=== PATIENT | female | born 1985 | race Caucasian/White ===

== ENCOUNTER 2016-12-03 13:39 | Outpatient (CLI) | payer MEDICAID ==
[~2016-12-03] VITALS: Ht 162.6 cm; Wt 110.7 kg
--- OUTSIDE RECORDS SUMMARY | 2016-12-03 13:44 | XMS REPORT ---
Author MALLORY Buckley [facility] eClinicalWorks Address Unknown Phone Unavailable Care Team Providers Care Analysis Evaluator Name Role Phone MALLORY WANG CP Unavailable Allergies No Known Allergies Problems No Known Problems Medications No Known Medications Results No Known Results Summary Purpose eClinicalWorks Submission
[2016-12-03] MEDS ORDERED: FLU TRIvalent (5 YOA+) 2016-17 (AFLURIA) 0.5 ML IM ONE (14:15)
[2016-12-03] MEDS ORDERED: PREN1TAB86 PO (15:22)
[2016-12-03] MEDS ORDERED: LORA10CA PO (15:23)
--- NOTE | 2016-12-03 16:00 | Diagnostic Imaging Report ---
EXAMINATION: OB ultrasound. INDICATION: Decreased movement. Low heart rate on baseline study. Evaluate COLLEEN and growth. FINDINGS: heart rate is 156 beats minute, normal. The placenta is on the right lateral aspect with no placenta previa. The amniotic fluid index is 9.4 cm. The growth parameters are biparietal diameter at 31 weeks, head circumference at 29 weeks and 2 days, abdominal circumference at 29 weeks and 4 days and femur length at 30 weeks and 1 day for an average of 30 weeks and 0 days. This is concordant with gestational age of 28 weeks and 6 days based on provided ONEAL of 02/19/17 provided by lamp shade sewer. IMPRESSION: Live intrauterine . Dictated by: Dictated on workstation # [id number]
--- NOTE | 2016-12-04 10:39 | Physician Query-Final Dx ---
SIDRA RUGGIERO 12/04/16 1039: Clinic Account Progress/Dx Physician Query: Please give diagnosis Date of Service Dec 03, 2016 at 13:39 MIESHA JAEGER MD 12/04/16 1720: Clinic Account Progress/Dx DIAGNOSIS: Diagnosis Decreased movement, third trimester SIDRA RUGGIERO Dec 04, 2016 10:39 MIESHA JAEGER MD Dec 04, 2016 17:20
[2017-01-31] MEDS ORDERED: IBUP-1773 PO (08:48)
[2017-01-31] MEDS ORDERED: DOCU100C37 PO (08:48)
[2017-01-31] MEDS ORDERED: HYDR-3812 PO (08:48)
== END 2016-12-03 15:35 | disposition home or self-care (01) ==
LOC: WSo 13:39 → LDRP 13:39 → WSo 15:35
PROVIDERS: ATTEND Obstetrics & Gynecology
DX: O36.8130 Decreased fetal movements, third trimester, not applicable or unspecified (principal); Z3A.28 28 weeks gestation of pregnancy
CPT/HCPCS: 76805; 99213

== ENCOUNTER 2017-01-30 10:30 | Inpatient (IN) | payer MEDICAID ==
[~2017-01-30] VITALS: Ht 162.6 cm; Wt 117.9 kg
[2017-01-30] VITALS (36 sets, daily range): BP systolic 103–167; BP diastolic 57–96
[~2017-01-30 10:30] MED LIST: LORA10CA PO; PREN1TAB86 PO
[2017-01-30] MEDS ORDERED: NS (IVPB) 0 ML ONE (11:10)
[2017-01-30] MEDS ORDERED: AMPICILLIN INJECTION 2,000 MG in NS (IVPB) 50 ML IV SCH (11:14)
[2017-01-30] MEDS ORDERED: NS IV 1000 ML 1,000 ML ONE (11:14)
[2017-01-30] MEDS ORDERED: CATHETER FLUSH 10 ML SYR IV PRN (11:15)
[2017-01-30] MEDS ORDERED: LIDOCAINE 1% INJ 20 ML (XYLOCAINE) VIAL INJ SCH (11:15)
[2017-01-30] MEDS ORDERED: MISOPROSTOL 100 MCG (CYTOTEC) TAB PO ONE ×2 (11:30→15:30)
--- NOTE | 2017-01-30 11:32 | History & Physical-OB ---
OB - Chief Complaint & HPI Date Date of Admission: Date of Admission: Jan 30, 2017 at 10:30 am Chief Complaint/History OB-Reason for Admission/Chief: Induction of Labor Hx : 6 Hx Para: 0 Expected Date of Delivery: Feb 20, 2017 Gestational Age in Weeks: 37 Gestational Age in Days: 1 Indication for induction: maternal distance, other (PreE, elevatated LFT, increased protien:creatinine ratio, noncompliance.) Other reason for admission: This 31-year-old female presented to my office yesterday after having not been seen for nearly 2 months for her care. The patient initially was a late transfer of care in the second trimester. We have been following her closely for noncompliance with her thyroid medications. The patient recently took up residence on an [facility], and she reports this as her excuse for not being able to make its visits. She reports that a cda teacher has been caring for her at the [facility], and that this person had brought concerns to her about preeclampsia due to significant amount of swelling that was noted in her lower extremities. She presented to my office yesterday and was found to have elevated liver function enzymes as well as significant +3 pitting lower show any edema. Her blood pressures remained in a normal level, however the patient has been taking a "kidney supplement pill" a Tamazight remedy which I am unfamiliar with to try and decrease her swelling. Urine protein to creatinine ratio was ordered and found to be greater than 0.3. Due to these findings are recommended proceeding with delivery due to patient's term status as well as noncompliance and vicinity to the hospital. Admission Nurse Assessment Rev: Yes History of Labs O pos antibody neg RI RPR NR HBsAg NR HIV NR GC neg GBS unknown Allergies and Home Medications Allergies Coded Allergies: No Known Drug Allergies (Unverified , 12/03/16) Home Medications Loratadine 10 Mg Capsule, 10 MG PO DAILY, (Reported) Vit W-Ca,Fe,FA(<1 mg) 1 Each Tablet, 1 EACH PO DAILY, (Reported) OB - History Hx of Present Care: Yes (limited) Ultrasounds: Normal mid trimester US Obstetrical Complications: Other (elevated random blood sugar, no 1 hour Glucola screening performed, limited care for hypothyroidism) Medical Complications: Other (hypothyroidism) Patient Past Medical History Hypothyroidism, habitual OB - Admission Exam Physical Exam HEENT: NCAT Heart: Rhythm Normal Lungs: Clear Abdomen: Gravid Cervical Dilatation: Fingertip Effacement: 75% Station: -2 Membranes: Intact Heart Rate: 130's Accelerations: Accelerations Present Decelerations: No Decelerations Short Term Variability: Present [facility] Variability: Average (6-25) Contractions on Admission: >10 Minutes Apart Intensity: Mild Craig Scoring Tool (Modified) Dilation (cm): 1-2cm (1) Effacement (%): 51-79% (2) Descent/Station: -2 (1) Cervix Consistency: Soft (2) Cervix Position: Anterior (2) Add 1 point for: Pre-eclampsia (1) Subtract 1 point for: Nulliparity (-1) Craig Score: 8 OB - Assessment/Plan/Diagnosis Assessment Assessment: induction of labor Plan Plan: Induction Induction Method: per Misoprostol Protocol Discharge Diagnosis Diagnosis: 31 yo @ 37.1 Severe preE with evidence of signicant proteinuria Elevated LFT Non compliance with medical management Non compliance with PNC GBS unknown KELLY SANCHEZ DO Jan 30, 2017 11:32 am
[2017-01-30] MEDS: NS IV 1000 ML 1,000 ML IV SCH (12:00)
[2017-01-30 13:06] LABS: BASOPHILS % (AUTO) 0 % (0-10); EOSINOPHILS # (AUTO) 0.1 10^3/uL (0.0-0.3); EOSINOPHILS % (AUTO) 1 % (0-10); LYMPHOCYTES % (AUTO) 13 % (12-44); MEAN CORPUSCULAR HEMOGLOBIN 29 PG (25-34); MEAN CORPUSCULAR HGB CONC 32 G/DL (32-36); MEAN CORPUSCULAR VOLUME 89 FL (80-99); MEAN PLATELET VOLUME 11.1 FL (7.4-10.4); MONOCYTES # (AUTO) 0.7 X 10^3 (0.0-1.0); MONOCYTES % (AUTO) 8 % (0-12); NEUTROPHILS % (AUTO) 77 % (42-75); PLATELET COUNT 178 10^3/uL (130-400); RED BLOOD COUNT 4.15 10^6/uL (4.35-5.85); WHITE BLOOD COUNT 7.8 10^3/uL (4.3-11.0)
[2017-01-30] MEDS ORDERED: CATHETER FLUSH 10 ML SYR IV SCH (14:00)
[2017-01-30 14:55] LABS: BILIRUBIN,URINE NEGATIVE (NEGATIVE); KETONES,URINE NEGATIVE (NEGATIVE); LEUKOCYTE ESTERASE ,URINE 1+ (NEGATIVE); NITRITE,URINE NEGATIVE (NEGATIVE); PH,URINE 6 (5-9); PROTEIN,URINE 1+ (NEGATIVE); UROBILINOGEN,URINE NORMAL (NORMAL)
[2017-01-30 15:14] LABS: SQUAMOUS EPITHELIAL CELL,UR 25-50 /HPF
[2017-01-30] MEDS: AMPICILLIN INJECTION 1,000 MG in NS (IVPB) 50 ML IV SCH ×2 (17:03→21:15)
[2017-01-30] MEDS ORDERED: MISOPROSTOL 100 MCG (CYTOTEC) TAB ONE (21:13)
[2017-01-30] MEDS ORDERED: HYDROmorphone (DILAUDID) 2 MG/ML VIAL ONE (22:30)
[2017-01-30] MEDS ORDERED: HYDROmorphone (DILAUDID) 2 MG/ML VIAL IVP PRN (22:45)
[2017-01-30] MEDS ORDERED: SUFENTA 0.6MCG/ML BUPIVA 0.125 100 ML ONE (22:46)
[2017-01-30] MEDS: EPIDURAL (SUFENTA 0.6MCG/ML BUPIVA 0.125%) 100 ML BAG EPI SCH (23:40)
[2017-01-30] MEDS ORDERED: LACTATED RINGERS 1,000 ML IV SCH (23:48)
[2017-01-31] VITALS (43 sets, daily range): BP systolic 92–145; BP diastolic 53–94
[2017-01-31] MEDS ORDERED: MISOPROSTOL 100 MCG (CYTOTEC) TAB PO SCH
[2017-01-31] MEDS: AMPICILLIN INJECTION 1,000 MG in NS (IVPB) 50 ML IV SCH ×2 (01:10→05:31)
[2017-01-31] MEDS: NS IV 1000 ML 1,000 ML IV SCH (05:31)
[2017-01-31] MEDS: EPIDURAL (SUFENTA 0.6MCG/ML BUPIVA 0.125%) 100 ML BAG EPI SCH (06:59)
[2017-01-31] MEDS ORDERED: FAMOTIDINE 20MG/2ML IV (PEPCID) ONE (07:54)
[2017-01-31] MEDS ORDERED: CITRIC ACID/SOB CIT (BICITRA) 30 ML UDC ONE (07:54)
[2017-01-31] MEDS ORDERED: OXYTOCIN/NORMAL SALINE 1,000 ML IV ONE (08:20)
[2017-01-31] MEDS ORDERED: ONDANSETRON 4 MG/2 ML (SDV) Z0FRAN ONE (08:20)
[2017-01-31] MEDS ORDERED: BUPIVACAINE SPINAL 0.75% (SENSORCAINE) 2 ML AMP ONE (08:20)
[2017-01-31] MEDS ORDERED: fentaNYL INJECTION 100 MCG/2 ML AMP ONE (08:21)
[2017-01-31] MEDS: LACTATED RINGERS 1,000 ML IV SCH (08:40)
[2017-01-31] MEDS ORDERED: OXYTOCIN/NORMAL SALINE 500 ML IV SCH (08:42)
--- NOTE | 2017-01-31 08:42 | Progress Note-Standard ---
Standard Progress Note Progress Notes/Assess & Plan Progress/Assessment & Plan This 31-year-old female was an induction of labor from yesterday for elevated liver enzymes and significant proteinuria associate with transient blood pressures greater than 140/90 giving me a diagnosis of preeclampsia. the patient was initially started on misoprostol for cervical ripening, this also initiated a contraction pattern. The patient became acutely uncomfortable yesterday evening and after her water broke at approximately 9 o'clock last night she received an epidural shortly thereafter. Throughout the evening she has been princess every 2-3 minutes, all the while causing a significant amount of pressure. She was checked after spontaneous rupture and found to be 1 cm this morning she has been found to make no change and has a slowly elevating temperature of 100.1 this morning. Fetus is also showing signs of intolerance of labor with 2 prolonged decelerations lasting approximately 3 minutes early this morning, heart rate would drop down to the 60s with slow rise back to baseline. When on evaluating the patient's morning she's having repetitive variable decelerations with contractions and minimal to moderate variability. Due to her remoteness from delivery, intolerance of labor, and failure to progress I am recommending we proceed with delivery. Risk of the procedure was discussed with the patient detail including risk of bleeding, infection, damaging surrounding structures including the fetus. Risk for need for blood incision, risk for hysterectomy, and even were discussed the patient. All of her questions were answered with her present, we will proceed as soon as staffing and anesthesia is available. KELLY SANCHEZ DO Jan 31, 2017 8:42 am
[2017-01-31] MEDS ORDERED: HYDROmorphone (DILAUDID) 2 MG/ML VIAL IVP PRN (08:45)
[2017-01-31] MEDS ORDERED: MEASLES,MUMPS,RUBELLA 1 EA INJ SC SCH (08:45)
[2017-01-31] MEDS ORDERED: ONDANSETRON 4 MG/2 ML (SDV) Z0FRAN IVP PRN (08:45)
[2017-01-31] MEDS ORDERED: TETANUS,DIPTH,PERTUSS P/F (BOOSTRIX) 0.5 ML VIAL IM SCH (08:45)
--- NOTE | 2017-01-31 08:46 | Discharge Inst-Women's Service ---
Discharge Inst-Women's Serv Depart Medication/Instructions New, Converted or Re-Newed RX: RX on Chart Consults/Follow Up Additional Follow Up: Yes Orders/Referrals Dr. Russell in 7-10 days and in 6 weeks Activity Activity: Activity as Tolerated Driving Instructions: No Driving for 1 Week NO SMOKING: NO SMOKING Nothing Inside Vagina: No Douching, No [place], No Tampons Diet Discharge Diet: No Restrictions Symptoms to Report to : Bleeding Excessive, Pain Increased, Fever Over 101 Degrees F, Vaginal Bleeding Increase, Questions/Concerns For Any Problems or Questions: Contact Your Physician Skin/Wound Care Infection Signs and Symptoms: Increased Redness, Foul Odor of Wound, Increased Drainage, Skin Itchy or Has a Rash, Increased Swelling, Temperature Above 101 F Operative Area Clean and Dry: Keep Incision Clean/Dry Stitches/Roxane/Dermabond: Dermabond, Care of Stitches Bathing Instructions: KELLY Larson DO Jan 31, 2017 8:46 am
[2017-01-31] MEDS ORDERED: DOCU100C37 PO (08:48)
[2017-01-31] MEDS ORDERED: IBUP-1773 PO (08:48)
[2017-01-31] MEDS ORDERED: HYDR-3812 PO (08:48)
[2017-01-31] MEDS ORDERED: KETOROLAC 30 MG/ML VIAL ONE (09:36)
[2017-01-31] MEDS ORDERED: LACTATED RINGERS 1,000 ML IV SCH (09:58)
[2017-01-31] MEDS ORDERED: morphine INJ 10 MG/ML 1ML (SYR OR VIAL) IVP PRN (10:00)
[2017-01-31] MEDS ORDERED: ceFAZolin 2 GM/50 ML NS 50 ML IV ONE (10:00)
[2017-01-31] MEDS ORDERED: METOCLOPRAMIDE INJ 10 MG/2 ML (REGLAN) IV PRN ×2 (10:00)
[2017-01-31] MEDS ORDERED: METOCLOPRAMIDE INJ 10 MG/2 ML (REGLAN) IV ONE (10:00)
[2017-01-31] MEDS ORDERED: MEPERIDINE (DEMEROL) INJ 50 MG/ML IVP PRN (10:00)
[2017-01-31] MEDS ORDERED: CITRIC ACID/SOB CIT (BICITRA) 30 ML UDC PO ONE (10:00)
[2017-01-31] MEDS ORDERED: FAMOTIDINE 20MG/2ML IV (PEPCID) IV ONE (10:00)
[2017-01-31] MEDS ORDERED: NALOXONE 0.4 MG/ML 1 ML (NARCAN) VIAL IV PRN ×4 (10:00)
[2017-01-31] MEDS ORDERED: diphenhydrAMINE 50 MG/ML INJ (BENADRYL) IV PRN ×2 (10:00)
[2017-01-31] MEDS ORDERED: ONDANSETRON 4 MG/2 ML (SDV) Z0FRAN IV PRN ×2 (10:00)
[2017-01-31] MEDS: HYDROcodone/APAP 5 MG/325 MG (LORTAB) TAB PO PRN ×2 (13:26→22:34)
[2017-01-31] MEDS: DOCUSATE SODIUM 100 MG (COLACE) CAP PO SCH ×2 (13:26→22:33)
[2017-01-31] MEDS: KETOROLAC 30 MG/ML VIAL IVP SCH (17:17)
[2017-02-01 00:30] VITALS: BP 123/70
[2017-02-01] MEDS: KETOROLAC 30 MG/ML VIAL IVP SCH ×3 (00:36→21:33)
[2017-02-01 05:46] LABS: BASOPHILS % (AUTO) 0 % (0-10); EOSINOPHILS # (AUTO) 0.1 10^3/uL (0.0-0.3); EOSINOPHILS % (AUTO) 1 % (0-10); LYMPHOCYTES # (AUTO) 1.5 X 10^3 (1.0-4.0); LYMPHOCYTES % (AUTO) 17 % (12-44); MEAN CORPUSCULAR HEMOGLOBIN 29 PG (25-34); MEAN CORPUSCULAR HGB CONC 32 G/DL (32-36); MEAN CORPUSCULAR VOLUME 91 FL (80-99); MEAN PLATELET VOLUME 10.8 FL (7.4-10.4); MONOCYTES # (AUTO) 0.6 X 10^3 (0.0-1.0); MONOCYTES % (AUTO) 7 % (0-12); NEUTROPHILS # (AUTO) 6.4 X 10^3 (1.8-7.8); NEUTROPHILS % (AUTO) 75 % (42-75); PLATELET COUNT 155 10^3/uL (130-400); RED BLOOD COUNT 3.56 10^6/uL (4.35-5.85); RED CELL DISTRIBUTION WIDTH 14.9 % (10.0-14.5); WHITE BLOOD COUNT 8.6 10^3/uL (4.3-11.0)
[2017-02-01 06:07] LABS: ALANINE AMINOTRANSFERASE 52 U/L (0-55); ALBUMIN 2.4 G/DL (3.2-4.5); ANION GAP 8 MMOL/L (5-14); ASPARTATE AMINO TRANSFERASE 36 U/L (5-34); BILIRUBIN,TOTAL 0.2 MG/DL (0.1-1.0); BLOOD UREA NITROGEN 7 MG/DL (7-18); BUN/CREATININE RATIO 10; CALCIUM 8.4 MG/DL (8.5-10.1); CARBON DIOXIDE 20 MMOL/L (21-32); CHLORIDE 111 MMOL/L (98-107); CREATININE SERUM 0.67 MG/DL (0.60-1.30); GFR ESTIMATED > 60; GLUCOSE 101 MG/DL (70-105); POTASSIUM 4.2 MMOL/L (3.6-5.0); SODIUM 139 MMOL/L (135-145)
[2017-02-01] MEDS: IBUPROFEN 600 MG (MOTRIN) TAB PO SCH ×4 (06:41→23:50)
[2017-02-01 06:45] VITALS: BP 129/89
[2017-02-01 08:04] VITALS: BP 115/80
[2017-02-01] MEDS: DOCUSATE SODIUM 100 MG (COLACE) CAP PO SCH ×2 (08:16→19:52)
--- NOTE | 2017-02-01 08:21 | Progress Note-Standard ---
Standard Progress Note Progress Notes/Assess & Plan Progress/Assessment & Plan Patient doing well POD 1 PLTCS. Reports good pain control. Ambulating and voiding freely. Says that she feels much better today. Tolerating regular diet Vital Sign - Last 24 Hours 01/31/17 01/31/17 01/31/17 01/31/17 08:30 08:46 11:10 11:45 Temp 99.1 98.2 Pulse 95 100 89 81 Resp 18 18 18 18 B/P (MAP) 108/58 123/64 123/76 112/78 Pulse Ox 98 98 99 98 O2 Delivery Non Rebreather Non Rebreather Room Air Room Air O2 Flow Rate 15.00 15.00 01/31/17 01/31/17 01/31/17 02/01/17 13:30 17:00 20:20 00:30 Temp 97.8 98.8 97.7 97.7 Pulse 107 108 97 103 Resp 18 18 16 16 B/P (MAP) 119/69 122/82 110/78 123/70 Pulse Ox 96 97 97 98 O2 Delivery Room Air Room Air Room Air Room Air 02/01/17 02/01/17 06:45 08:04 Temp 97.0 97.4 Pulse 98 93 Resp 18 18 B/P (MAP) 129/89 115/80 Pulse Ox 98 98 O2 Delivery Room Air Room Air Intake and Output 01/31/17 01/31/17 02/01/17 15:00 23:00 07:00 Intake Total 3210 ml 3840 ml 240 ml Output Total 600 ml 1500 ml 1150 ml Balance 2610 ml 2340 ml -910 ml Laboratory Tests Test 02/01/17 05:29 Range/Units White Blood Count 8.6 4.3-11.0 10^3/uL Red Blood Count 3.56 L 4.35-5.85 10^6/uL Hemoglobin 10.3 L 11.5-16.0 G/DL Hematocrit 32 L 35-52 % Mean Corpuscular Volume 91 80-99 FL Mean Corpuscular Hemoglobin 29 25-34 PG Mean Corpuscular Hemoglobin Concent 32 32-36 G/DL Red Cell Distribution Width 14.9 H 10.0-14.5 % Platelet Count 155 130-400 10^3/uL Mean Platelet Volume 10.8 H 7.4-10.4 FL Neutrophils (%) (Auto) 75 42-75 % Lymphocytes (%) (Auto) 17 12-44 % Monocytes (%) (Auto) 7 0-12 % Eosinophils (%) (Auto) 1 0-10 % Basophils (%) (Auto) 0 0-10 % Neutrophils # (Auto) 6.4 1.8-7.8 X 10^3 Lymphocytes # (Auto) 1.5 1.0-4.0 X 10^3 Monocytes # (Auto) 0.6 0.0-1.0 X 10^3 Eosinophils # (Auto) 0.1 0.0-0.3 10^3/uL Basophils # (Auto) 0.0 0.0-0.1 10^3/uL Sodium Level 139 135-145 MMOL/L Potassium Level 4.2 3.6-5.0 MMOL/L Chloride Level 111 H 98-107 MMOL/L Carbon Dioxide Level 20 L 21-32 MMOL/L Anion Gap 8 5-14 MMOL/L Blood Urea Nitrogen 7 7-18 MG/DL Creatinine 0.67 0.60-1.30 MG/DL Estimat Glomerular Filtration Rate > 60 BUN/Creatinine Ratio 10 Glucose Level 101 70-105 MG/DL Calcium Level 8.4 L 8.5-10.1 MG/DL Total Bilirubin 0.2 0.1-1.0 MG/DL Aspartate Amino Transf (AST/SGOT) 36 H 5-34 U/L Alanine Aminotransferase (ALT/SGPT) 52 0-55 U/L Alkaline Phosphatase 150 H 40-136 U/L Total Protein 5.0 L 6.4-8.2 G/DL Albumin 2.4 L 3.2-4.5 G/DL Incision: c/d/i Diagnosis: POD 1 PLTCS Elevation in Liver enzymes- but improving today. intolerance of labor Plan: Continue PO/PP care Repeat CMP tomorrow KELLY SANCHEZ DO Feb 01, 2017 8:21 am
[2017-02-01 12:10] VITALS: BP 121/85
--- NOTE | 2017-02-01 13:11 | Anesthesia-Regional Post-Op ---
Regional Patient Condition Mental Status: Alert, Oriented x3 Circulation: Same as Pre-Op Headache: Absent Sensation: Full Recovery Motor Block: Absent Post Op Complications Complications None Follow Up Care/Instructions Patient Instructions None needed. Anesthesia/Patient Condition Patient is doing well, no complaints, stable vital signs, no apparent adverse anesthesia problems. No complications reported per nursing. ALBERTA MARIEE CRNA Feb 01, 2017 13:11
--- NOTE | 2017-02-01 13:26 | OPERATIVE REPORT ---
PROCEDURE PHYSICIAN: RODRIGO SANCHEZ DATE OF PROCEDURE: 01/31/2017 PREOPERATIVE DIAGNOSIS: 1. 31-year-old G5, P0, at 37 weeks and 2 days gestation. 2. intolerance of labor. 3. Failure to progress. 4. Elevation in liver enzymes. 5. Preeclampsia. POSTOPERATIVE DIAGNOSES: 1. 31-year-old G5, P0, at 37 weeks and 2 days gestation. 2. intolerance of labor. 3. Failure to progress. 4. Elevation in liver enzymes. 5. Preeclampsia. PROCEDURE: Primary low transverse section. SURGEON: Dr. Rodrigo Sacnhez. ANESTHESIA: Spinal. ESTIMATED BLOOD LOSS: 400 mL URINE OUTPUT: 200 mL, clear at the end of the procedure. FLUIDS: 1200 of lactated ringer solution. FINDINGS: Findings is a live female weighing 7 pounds, 10 ounces, Apgars of 6 and 8. Grossly normal appearing uterus, bilateral fallopian tubes, and ovaries. INDICATIONS FOR THE PROCEDURE: This 31-year-old female was induced due to suspicion of severe preeclampsia, significant swelling, elevated blood pressures, urine protein to creatinine ratio greater than 0.3. Due to these findings recommendation was made to induce the patient; please see preoperative note for complete details, pertaining to patient's labor course and indications for . OPERATIVE REPORT IN DETAIL: The patient was taken the operating room where spinal analgesia was found to be adequate. She was placed in the supine position with leftward tilt, prepped and draped in normal sterile fashion. A timeout is performed and anesthesia is tested. After anesthesia is found to be adequate I then make a Pfannenstiel skin incision with a knife and carry it down to the underlying fascia using the Bovie cautery. The fascial incision was extended laterally using Bovie cautery. The superior aspect of the fascial incision was then grasped with Milton clamps, tented upward and dissected off the underlying rectus muscles. The inferior aspect of the fascial incision was then grasper Milton clamps, tented upward and dissected off the underlying rectus muscles. The rectus muscles were then dissected down the midline using Mora scissors which exposes the peritoneum which is entered bluntly using my hand. Once the peritoneal access is obtained, I extend the peritoneal incision superior and inferiorly using Metzenbaum scissors with good visualization of the underlying bowel and bladder. I then place the Derik ring retractor into the peritoneal incision which offers excellent lateral sidewall retraction. I am able to identify the lower uterine segment which was found to be thinned out. An incision is made using the knife through the vesicouterine peritoneum and this was bluntly dissect it off of the lower uterine segment creating a bladder flap. I then proceed with my myotomy until membranes are visualized at which point I extend the uterine incision laterally and superiorly using banded scissors. The fetus is found in the right occiput transverse presentation and a hand presents through the incision before I am able to manipulate the head up to the incision. I then reduce the hand back within the uterus and place my hand within the uterine incision, placing it beneath the head and elevated up to the incision where it is delivered through the incision. The nares and oropharynx are bulb suctioned. Anterior posterior shoulders were delivered and is then brought onto the operative field where the cord is dually clamped and cut and the is handed off to the waiting pediatric nurses in attendance. The cord blood was collected, three vessel cord. Placenta is delivered spontaneously thereafter. IV Pitocin is initiated to facilitate uterine princess, the fundus becomes firmer with bimanual massage. The uterus is then exteriorized and cleared of all endometrial clots and debris. I then close the uterine incision using 0 Vicryl suture in a running lock fashion. A second layer of imbricating 0 Monocryl is placed. Excellent hemostasis noted after doing so. I then placed the uterus back within the pelvis and copiously irrigate the pelvis using normal saline. There is no active bleeding noted from any my dissection planes. I then place intercede antiadhesive over my low transverse incision and closed the peritoneum using 3-0 Vicryl suture in a running fashion. The fascia was reapproximated in 0 Vicryl suture in a running fashion. The subcutaneous tissues reapproximated 3-0 plain in an interrupted subcutaneous stitch and skin reapproximated using 4-0 Monocryl in a running, subcuticular. Dermabond is applied to the incision, a sterile dressing and adhesive white tape. The patient tolerated the procedure well and was taken to the recovery area in stable condition with Pillai catheter still in place. Lap and sponge counts were correct at the end of the procedure. Instrument counts correct as well. 2 grams Ancef are given preoperatively for infection prophylaxis. Job ID: [id number] Dictated Date: 01/31/2017 10:00:16 Multifocal Button Inspector Date: 02/01/2017 13:03:56 / maryanne
[2017-02-01] MEDS: HYDROcodone/APAP 5 MG/325 MG (LORTAB) TAB PO PRN ×2 (19:52→23:50)
[2017-02-01 20:05] VITALS: BP 119/86
[2017-02-01] MEDS: CATHETER FLUSH 10 ML SYR IV SCH ×3 (21:32→21:35)
[2017-02-01] MEDS: LACTATED RINGERS 1,000 ML IV SCH ×3 (21:33→21:35)
[2017-02-02 00:47] VITALS: BP 115/74
[2017-02-02] MEDS: CATHETER FLUSH 10 ML SYR IV SCH ×2 (01:24→06:00)
[2017-02-02] MEDS: LACTATED RINGERS 1,000 ML IV SCH (01:58)
[2017-02-02] MEDS: HYDROcodone/APAP 5 MG/325 MG (LORTAB) TAB PO PRN ×2 (04:24→16:30)
[2017-02-02 06:00] VITALS: BP 114/74
[2017-02-02] MEDS: IBUPROFEN 600 MG (MOTRIN) TAB PO SCH ×2 (06:07→11:58)
[2017-02-02 08:39] VITALS: BP 124/85
[2017-02-02 08:40] VITALS: BP 124/85
--- NOTE | 2017-02-02 08:40 | Progress Note-Standard ---
Standard Progress Note Progress Notes/Assess & Plan Progress/Assessment & Plan Patient doing well POD 2 PLTCS. Reports good pain control. Ambulating and voiding freely. Says that she feels much better today. Tolerating regular diet Vital Sign - Last 24 Hours 02/01/17 402/02/17 02/02/17 12:10 20:05 00:47 06:00 Temp 98.0 98.6 98.1 97.8 Pulse 99 93 88 93 Resp 18 18 18 18 B/P (MAP) 121/85 119/86 115/74 114/74 Pulse Ox 98 98 97 97 O2 Delivery Room Air Room Air Room Air Room Air Intake and Output 02/01/17 02/01/17 02/02/17 15:00 23:00 07:00 Intake Total 2280 ml 500 ml Output Total 2550 ml Balance -270 ml 500 ml Incision: c/d/i Diagnosis: POD 2 PLTCS intolerance of labor Plan: Continue PO/PP care Discharge today KELLY SANCHEZ DO Feb 02, 2017 8:40 am
[2017-02-02] MEDS: DOCUSATE SODIUM 100 MG (COLACE) CAP PO SCH (08:48)
[2017-02-02 09:43] LABS: ALANINE AMINOTRANSFERASE 48 U/L (0-55); ALBUMIN 2.7 G/DL (3.2-4.5); ANION GAP 9 MMOL/L (5-14); ASPARTATE AMINO TRANSFERASE 31 U/L (5-34); BILIRUBIN,TOTAL 0.3 MG/DL (0.1-1.0); BLOOD UREA NITROGEN 6 MG/DL (7-18); BUN/CREATININE RATIO 9; CALCIUM 8.4 MG/DL (8.5-10.1); CARBON DIOXIDE 23 MMOL/L (21-32); CHLORIDE 108 MMOL/L (98-107); CREATININE SERUM 0.68 MG/DL (0.60-1.30); GFR ESTIMATED > 60; GLUCOSE 87 MG/DL (70-105); SODIUM 140 MMOL/L (135-145); TOTAL PROTEIN 5.5 G/DL (6.4-8.2)
[2017-02-02 12:00] VITALS: BP 113/80
[2017-02-02 16:30] VITALS: BP 129/80
--- NOTE | 2017-02-11 09:57 | DISCHARGE SUMMARY ---
DATE OF SERVICE: ADMISSION DIAGNOSES: 1. A 31-year-old at 37 weeks and 1 day gestation. 2. Severe pre-eclampsia with evidence of significant proteinuria. 3. Elevated liver enzymes. 4. Noncompliance with medical management. 5. Noncompliance with care. 6. GBS unknown. DISCHARGE DATE: 02/02/2017. DISCHARGE DIAGNOSES: 1. A 31-year-old at 37 weeks and 1 day gestation. 2. Severe pre-eclampsia with evidence of significant proteinuria. 3. Elevated liver enzymes. 4. Noncompliance with medical management. 5. Noncompliance with care. 6. GBS unknown. 7. Postoperative day two primary low transverse section for intolerance of labor. SERVICE: Women's Services. ATTENDING PHYSICIAN: Dr. Kelly Sanchez. HOSPITAL COURSE: Please see admission history and physical from 01/30/2017 for complete details pertaining to the patient's admission presentation and plan of care, as well as indications for induction. Please see operative report from 02/01/2017 for complete details pertaining to the patient's operative report in detail, as well as indications for that procedure. Postoperative course for this patient was fairly routine. On postop day one the patient was doing well. She was reporting good pain control, ambulating and voiding freely. Her vital signs remained stable. Blood pressures did not elevate at that point. Her liver enzymes did decrease on postoperative day number one. We continued to monitor the patient due to until postoperative day two at which point she continued to do well. Her pain was well controlled. She was ambulating and voiding freely. She was feeling even better on postoperative day two. She was encouraged to breastfeed. Due to the patient's clinical stability, the decision was made to discharge the patient home on postoperative day two. She was given routine postoperative and precautions and told to follow these and return to care if any concerns should arise. DISCHARGE MEDICATIONS: She was discharged on the following medications includin. Motrin 600 mg 1 p.o. q.6h. as needed for pain #60. 2. [place] 5/325 1 p.o. q.4-6h. as needed for pain #50. 3. Colace 100 mg p.o. b.i.d. as needed for constipation #40. 4. She was told to continue her vitamins. The patient's discharge was facilitated on postoperative day two without further difficulty and all of her questions were answered. Job ID: [id number] DocumentID: [id number] Dictated Date: 02/11/2017 09:44:00 Elderly Sitter Date: 02/11/2017 09:57:09 Dictated By: KELLY SANCHEZ DO
--- OUTSIDE RECORDS SUMMARY | 2017-03-05 21:45 | XMS REPORT ---
Author Author MALLORY WANG Organization [facility] Address [address] [place] [address] Care Team Providers Care Doll Wig Maker Name Role Phone MALLORY WANG Unavailable PROBLEMS Type Condition ICD9-CM Code [id number] Code Onset Dates Condition Status SNOMED Code Assessment Slow transit constipation K59.01 Jun, Active 49496151 ALLERGIES Substance Reaction Event Type Date Status Estrogens Conjugated rash, vomiting Drug Allergy Jun, Active SOCIAL HISTORY No smoking Hx information available PLAN OF CARE VITAL SIGNS Height 64.5 in 2016-07-14 Weight 225.6 lbs 2016-07-14 Heart Rate 92 bpm 2016-07-14 Respiratory Rate 20 2016-07-14 BMI 38.12 kg/m2 2016-07-14 Blood pressure systolic 113 mmHg 2016-07-14 Blood pressure diastolic 78 mmHg 2016-07-14 MEDICATIONS Medication Instructions Dosage Frequency Start Date End Date Duration Status Colace 100 MG Orally 2 times a day 1 capsule as needed 12h Jun, Jul, 30 day(s) Active MiraLax 17 gm/dose Orally 3 times a day 1 capful 8h Jun, Jun, 10 days Active RESULTS No Results PROCEDURES Procedure Date Ordered Related Diagnosis Body Site Office Visit, Est Pt., Level 3 Jul 14, 2016 IMMUNIZATIONS No Known Immunizations
--- OUTSIDE RECORDS SUMMARY | 2017-03-05 21:45 | XMS REPORT ---
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5 in BMI 41.151 Index Blood Pressure Diastolic 78 mmHg Blood Pressure Systolic 118 mmHg Results Name Result Date Reference Range Unit Abnormality Flag TSH () ----TSH 3.820 [id number] 0.450-4.500 uIU/mL CBC ----Basos 0 75083291 % ----MCV 88 39767245 79-97 fL ----Hematocrit 40.7 79851143 34.0-46.6 % ----Eos 1 21015497 % ----MCHC 34.2 33909238 31.5-35.7 g/dL ----Monocytes 7 49801620 % ----MCH 30.0 [id number] 26.6-33.0 pg ----Lymphs 13 08313335 % ----Eos (Absolute) 0.1 [id number] 0.0-0.4 x10E3/uL ----WBC 9.7 [id number] 3.4-10.8 x10E3/uL ----Monocytes(Absolute) 0.7 [id number] 0.1-0.9 x10E3/uL ----Lymphs (Absolute) 1.3 [id number] 0.7-3.1 x10E3/uL ----Hemoglobin 13.9 13407611 11.1-15.9 g/dL ----Neutrophils (Absolute) 7.6 [id number] 1.4-7.0 x10E3/uL H ----RBC 4.64 [id number] 3.77-5.28 x10E6/uL ----Immature Grans (Abs) 0.0 13357012 0.0-0.1 x10E3/uL ----Immature Granulocytes 0 20160801 % ----Neutrophils 79 16956723 % ----Baso (Absolute) 0.0 [id number] 0.0-0.2 x10E3/uL ----RDW 13.6 10745628 12.3-15.4 % ----Platelets 262 [id number] 150-379 x10E3/uL UA LONG DIP (IN HOUSE) ----APRIL Negative [id number] ----NIT Negative [id number] ----SG 1.025 20160801 ----KET Negative 20160801 ----LUDY Negative 20160801 ----GLU Negative 20160801 ----Odor None 20160801 ----pH 7.0 20160801 ----BLO Negative 20160801 ----URO 2.0 20160801 ----Protein Negative [id number] ----Lot # [id number] ----Exp date [id number] ----Clarity Clear [id number] ----Color Yellow [id number] ROUTINE VENIPUNCTURE RUBELLA ANTIBODIES, IgG ----Rubella Antibodies, IgG 4.91 20160801 Immune >0.99 index CULTURE, URINE ----Urine Culture, Routine Final report [id number] ----Result 1 No growth [id number] ANTIBODY SCREEN ----Antibody Screen Negative 20160801 Negative BLOOD TYPE/RH FACTOR ----Rh Factor Positive 20160801 ----ABO Grouping O [id number] Summary Purpose eClinicalWorks Submission
--- OUTSIDE RECORDS SUMMARY | 2017-03-05 21:45 | XMS REPORT ---
Author [facility] Address [address] [place] [address] Care Team Providers Care Equestrian Trainer Name Role Phone MALLORY WANG Unavailable PROBLEMS Unknown Problems ALLERGIES No Known Allergies SOCIAL HISTORY No smoking Hx information available PLAN OF CARE VITAL SIGNS MEDICATIONS No Known Medications RESULTS No Results PROCEDURES No Known procedures IMMUNIZATIONS No Known Immunizations
--- OUTSIDE RECORDS SUMMARY | 2017-03-05 21:45 | XMS REPORT ---
Author MALLORY Buckley [facility] eClinicalWorks Address Unknown Phone Unavailable Care Team Providers Care Fretted Instrument Inspector Name Role Phone MALLORY WANG CP Unavailable Allergies No Known Allergies Problems Problem Type Condition Code Onset Dates Condition Status Assessment Absent menses N91.2 Active Medications No Known Medications Procedures Procedure Coding System Code Date CHORIONIC GONADOTROPIN TEST CPT-4 41494 Jun 23, 2016 VENIPFATUMA, ROUTINE* CPT-4 75885 Jun 23, 2016 Results No Known Results Summary Purpose eClinicalWorks Submission
--- OUTSIDE RECORDS SUMMARY | 2017-03-05 21:45 | XMS REPORT ---
Author MALLORY Buckley [facility] eClinicalWorks Address Unknown Phone Unavailable Care Team Providers Care Fisheries Manager Name Role Phone MALLORY WANG CP Unavailable Allergies No Known Allergies Problems No Known Problems Medications No Known Medications Results No Known Results Summary Purpose eClinicalWorks Submission
--- OUTSIDE RECORDS SUMMARY | 2017-03-05 21:45 | XMS REPORT ---
Author TERESSA Payne [facility] eClinicalWorks Address Unknown Phone Unavailable Care Team Providers Care Crester Name Role Phone TERESSA PUCKETT CP Unavailable Allergies No Known Allergies Problems No Known Problems Medications No Known Medications Results No Known Results Summary Purpose eClinicalWorks Submission
--- OUTSIDE RECORDS SUMMARY | 2017-03-05 21:45 | XMS REPORT ---
Author Author JOHN BARRERA [facility] Address [address] [place] [address] Care Team Providers Care Assistant In Nursing Name Role Phone JOHN BARRERA Unavailable PROBLEMS Type Condition ICD9-CM Code [id number] Code Onset Dates Condition Status SNOMED Code Assessment Acquired hypothyroidism E03.9 Jun, Active 343391666 ALLERGIES No Known Allergies SOCIAL HISTORY No smoking Hx information available PLAN OF CARE VITAL SIGNS MEDICATIONS Medication Instructions Dosage Frequency Start Date End Date Duration Status Synthroid 75 MCG Orally Once a day 1 tablet on an empty stomach in the morning 24h Jun, 30 day(s) Active RESULTS No Results PROCEDURES No Known procedures IMMUNIZATIONS No Known Immunizations
--- OUTSIDE RECORDS SUMMARY | 2017-03-05 21:45 | XMS REPORT ---
Author Author HOLLY JOHN Organization [facility] Address [address] [place] [address] Care Team Providers Care Hose Tester Name Role Phone JOHN BARRERA Unavailable PROBLEMS Type Condition ICD9-CM Code [id number] Code Onset Dates Condition Status SNOMED Code Assessment Acquired hypothyroidism E03.9 14 Jun, 2016 Active 517142527 Assessment First trimester Z33.1 14 Jun, 2016 Active [id number] ALLERGIES Substance Reaction Event Type Date Status Estrogens Conjugated rash, vomiting Drug Allergy Jun, Active SOCIAL HISTORY No smoking Hx information available PLAN OF CARE VITAL SIGNS Height 64.5 in 2016-07-09 Weight 224.9 lbs 2016-07-09 Heart Rate 78 bpm 2016-07-09 Respiratory Rate 20 2016-07-09 BMI 38.008 kg/m2 2016-07-09 Blood pressure systolic 119 mmHg 2016-07-09 Blood pressure diastolic 83 mmHg 2016-07-09 MEDICATIONS Medication Instructions Dosage Frequency Start Date End Date Duration Status Progesterone Micronized 10 % Active Fiber Select Gummies - Active 27-1 MG Active RESULTS Name Result Date Reference Range TSH W/ FREE T4 2016-07-09 TSH 4.620 0.450-4.500 T4,Free(Direct) 1.01 0.82-1.77 Ultrasound : OB, Early <14 WEEKS 2016-07-16 PROCEDURES Procedure Date Ordered Related Diagnosis Body Site LAB NOT BILLED BY [facility] Jul 09, 2016 VENIPUNCT, ROUTINE* Jul 09, 2016 Office Visit, Est Pt., Level 3 Jul 09, 2016 IMMUNIZATIONS No Known Immunizations
--- OUTSIDE RECORDS SUMMARY | 2017-03-05 21:45 | XMS REPORT ---
Author Author JOHN BARRERA [facility] Address [address] [place] [address] Care Team Providers Care Real Estate Executive Assistant Name Role Phone JOHN BARRERA Unavailable PROBLEMS Unknown Problems ALLERGIES Substance Reaction Event Type Date Status Estrogens Conjugated rash, vomiting Drug Allergy Jun, Active SOCIAL HISTORY No smoking Hx information available PLAN OF CARE VITAL SIGNS MEDICATIONS Medication Instructions Dosage Frequency Start Date End Date Duration Status Fiber Select Gummies - Active Progesterone Micronized 10 % Active 27-1 MG Active RESULTS No Results PROCEDURES No Known procedures IMMUNIZATIONS No Known Immunizations
--- OUTSIDE RECORDS SUMMARY | 2017-03-05 21:46 | XMS REPORT ---
Author Author DANNY PORTER [facility] Address [address] [place] [address] Care Team Providers Care Android Framework Developer Name Role Phone DANNY PORTER Unavailable PROBLEMS Unknown Problems ALLERGIES No Known Allergies SOCIAL HISTORY No smoking Hx information available PLAN OF CARE VITAL SIGNS MEDICATIONS No Known Medications RESULTS No Results PROCEDURES No Known procedures IMMUNIZATIONS No Known Immunizations
== END 2017-02-02 17:00 | disposition home or self-care (01) | DRG 766 ==
LOC: LDRP 10:30
PROVIDERS: ADMIT Obstetrics & Gynecology; ATTEND Obstetrics & Gynecology
PROC: 3E0DXGC Introduction of Other Therapeutic Substance into Mouth and Pharynx, External Approach (ICD-10-PCS; 2017-01-30)
PROC: 10D00Z1 Extraction of Products of Conception, Low, Open Approach (ICD-10-PCS; principal; 2017-01-31 08:50)
DX: O14.14 Severe pre-eclampsia complicating childbirth (principal); O99.284 Endocrine, nutritional and metabolic diseases complicating childbirth; E03.9 Hypothyroidism, unspecified; O76 Abnormality in fetal heart rate and rhythm complicating labor and delivery; R74.8 Abnormal levels of other serum enzymes; O62.0 Primary inadequate contractions; Z91.14 Patient's other noncompliance with medication regimen; Z37.0 Single live birth; Z3A.37 37 weeks gestation of pregnancy
CPT/HCPCS: 36415; 80053; 81000; 85025; 86850; 86900; 86901; 87081; 87088; 94664

== ENCOUNTER → 2018-08-12 | Outpatient (CLI) | payer MEDICAID ==
[~2018-08-12] MED LIST changes: +ACHD5005 PO; +DOCU100C37 PO; +IBUP-1773 PO
--- NOTE | 2018-08-12 13:42 | Diagnostic Imaging Report ---
INDICATION: survey. TECHNIQUE: Multiple real-time grayscale images were obtained over the gravid uterus. COMPARISON: None. FINDINGS: There is a single live fetus in a variable presentation. heart rate was recorded at 153 beats per minute. Placenta is anterior. Amniotic fluid volume is normal. Cervical length is 5.7 cm. survey demonstrates kidneys, bladder, and stomach to be unremarkable. The brain is unremarkable. There is a four-chamber heart. There is a three-vessel cord with normal insertion. The spine is unremarkable. Biometrical measurements are as follows: Biparietal 5.03 cm, age 21 weeks 2 days. Head circumference 15.40 cm, age 20 weeks 5 days. Abdominal circumference 15.40 cm, age 20 weeks 5 days. Femur length 3.45 cm, age 21 weeks 0 days. Sonographic estimate age: 21 weeks 1 days. Sonographic estimated date of delivery: 12/22/18. Estimated Weight: 376 gm (+/- 55 gm). LMP percentile: 80%. heart rate: 153 beats per minute. number: 1 of 1. IMPRESSION: Single live IUP of approximately 21 weeks gestational age. The estimated date of confinement sonographically is 12/22/2018. Dictated by: Dictated on workstation # [id number]
== END ==
LOC: RAD 12:24
PROVIDERS: ATTEND Obstetrics & Gynecology
DX: Z36.89 Encounter for other specified antenatal screening (principal); Z3A.21 21 weeks gestation of pregnancy
CPT/HCPCS: 76805